=== PATIENT | male | born 1945 | race Caucasian/White ===

== ENCOUNTER 2017-01-09 05:54 | Day surgery (SDC) | payer MEDICARE, OTHER ==
[~2017-01-09 05:54] MED LIST: Bacitracin Oint 1 GM U/D Packet ONE; Bupivacaine 0.5% 50 ML MDV ONE; Dextrose 5%-Lactated Ringers 1,000 ML IV SCH; Lidocaine 1% with EPINEPHrine 1:100,000 50 ML MDV ONE
[2017-01-09] MEDS ORDERED: Bupivacaine 0.5%/EPINEPHrine 1:200,000 50 ML MDV ONE (06:53)
[2017-01-09] MEDS ORDERED: Lidocaine 1% 50 ML MDV ONE (06:54)
[2017-01-09] MEDS ORDERED: Albuterol/Ipratropium 3.0-0.5 MG/3 ML Neb Soln NEB ONE (07:00)
[2017-01-09] MEDS ORDERED: Propofol 200 MG/20 ML SDV ONE ×2 (07:08→09:16)
[2017-01-09] MEDS ORDERED: fentaNYL 100 MCG/2 ML SDV ONE (07:08)
[2017-01-09] MEDS ORDERED: Midazolam 1 MG/ML 2 ML SDV ONE (07:08)
[2017-01-09] MEDS ORDERED: Bacitracin Oint 1 GM U/D Packet ONE (07:20)
[2017-01-09 10:24] VITALS: BP 131/77
--- NOTE | 2017-01-14 12:49 | OR ---
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 OPERATIVE PROCEDURE: 1. Excision of atypical keratotic lesion of left lower back with layered closure (85294, [id number]). 2. Excision of atypical keratotic lesion right lower back with layered closure (19387, 25109). 3. Excision of atypical keratotic lesions of lower mid back with layered closure (42712, 71410). 4. Excision of atypical keratotic lesions of right upper back with layered closure ([id number], 24190). 5. Excision of atypical keratotic lesion of mid upper back with layered closure (26336, 76300). ANESTHESIA: Local plus IV sedation. FORMULATOR: WILL Reed student. INDICATIONS FOR PROCEDURE: This is a 71-year-old with aggressive formation of pigmented keratotic lesions, particularly on his back. He was referred from his primary care provider to evaluate these lesions, and a total of five were felt to be atypical in terms of dark pigmentation and would warrant excision. The plan is to proceed with excision of these. Potential risks including bleeding, infection, some cosmetic deformity, possible initial treatment might be required if melanoma happens to be identified within one of the lesions were all gone over and the patient wishes to proceed. DETAILS OF PROCEDURE: The patient was taken to the operating room and placed in a prone position. IV sedation was administered, after which the back area was then prepped and draped. Beginning in the left lower back, an elliptical incision was made of 2.5 cm, removing a lesion of 1.2 cm. In the right lower back, an elliptical incision of 2.7 cm was made, removing a lesion of 2.1 cm. In the lower mid back, a 4.2 cm incision was made, removing a lesion measuring 2.8 cm. In the right upper back, a lesion measuring 2.1 cm was excised with an incision length of 4.0 cm. Finally, in the upper mid back, a 2.1 cm lesion was removed with incision length of 2.5 cm. In each case, the deeper soft tissues were approximated with a combination of 4-0 and 3-0 Vicryl sutures, and the skin closed with a 5- 0 Prolene stitch. Dressings were applied. The patient was taken to the recovery room in satisfactory condition. Douglas Nina MD /[id number]
== END 2017-01-09 10:32 | disposition home or self-care (01) ==
LOC: JP.SDS 05:54
PROVIDERS: ATTEND Surgery
DX: L57.0 Actinic keratosis (principal); E66.9 Obesity, unspecified; F17.210 Nicotine dependence, cigarettes, uncomplicated
CPT/HCPCS: 11602; 11603; 12032; 88305; J2250; J2704; J3010; J7042; J7620

== ENCOUNTER 2022-12-24 11:44 | Emergency (ER) | payer OTHER ==
[2022-12-24] MEDS ORDERED: Sodium Chloride 0.9% 10 ML Syringe FLUSH PRN (12:36)
[2022-12-24 12:50] LABS: BASOPHILS ABSOLUTE AUTO 0.03 K/uL (0.00-0.10); BASOPHILS PERCENT AUTO 0.4 % (0.1-1.3); EOSINOPHILS ABSOLUTE AUTO 0.11 K/uL (0.00-0.40); EOSINOPHILS PERCENT AUTO 1.3 % (0.0-5.4); HEMATOCRIT 39.1 % (38.4-49.7); HEMOGLOBIN 12.9 g/dL (12.9-16.9); IMMATURE GRAN ABSOLUTE AUTO 0.03 K/uL (0.00-0.23); IMMATURE GRAN PERCENT AUTO 0.4 % (0.0-0.7); LYMPHOCYTES PERCENT AUTO 29.3 % (11.4-47.7); MEAN CORPUSCULAR HEMOGLOBIN 31.5 pg (31.6-35.5); MEAN CORPUSCULAR VOLUME 95.4 fL (81.4-99.0); MONOCYTES ABSOLUTE AUTO 0.97 K/uL (0.20-0.90); MONOCYTES PERCENT AUTO 11.9 % (3.3-12.6); NEUTROPHILS ABSOLUTE AUTO 4.64 K/uL (1.0-7.6); NEUTROPHILS PERCENT AUTO 56.7 % (40.0-78.1); PLATELET COUNT,PLT 327 K/uL (130-375); WHITE BLOOD CELL COUNT,WBC 8.2 K/uL (3.2-11.0)
[2022-12-24 13:17] LABS: A/G RATIO 0.7 (1.2-2.2); ALANINE AMINOTRANSFERASE,ALT 32 U/L (12-78); ALKALINE PHOSPHATASE 106 U/L (46-116); ASPARTATE AMNIOTRANSFERASE,AST 18 U/L (15-37); BILIRUBIN TOTAL 0.3 mg/dL (0.2-1.0); BLOOD UREA NITROGEN,BUN 16 mg/dL (7-18); CALCIUM 8.6 mg/dL (8.5-10.1); CARBON DIOXIDE,CO2 28 mmol/L (21-32); CHLORIDE,CL 104 mmol/L (100-108); CREATININE 0.9 mg/dL (0.8-1.3); EST CRCL DRUG DOSING (CG) 65.28 mL/min; ESTIMATED GFR 89 mL/min (>60); GLUCOSE RANDOM 99 mg/dL (74-106); POTASSIUM,K 4.5 mmol/L (3.6-5.2); PRO B-TYPE NATRIUR PEPT,BNPPRO 1169 pg/mL (5-450); PROTEIN TOTAL,TP 7.3 g/dL (6.4-8.2); SODIUM,NA 137 mmol/L (140-148); TROPONIN I HIGH SENSITIVITY 13.8 pg/mL (<=60.3)
[2022-12-24 13:20] LABS: ANION GAP 9.5 mmol/L (5.0-14.0)
[2022-12-24] MEDS ORDERED: Furosemide 40 MG/4 ML VIAL IVPUSH ONE (13:43)
[2022-12-24 14:10] VITALS: BP 110/85; PULSE 58
== END 2022-12-24 15:45 | disposition home or self-care (01) ==
LOC: JP.ED 11:44
DX: R06.02 Shortness of breath (principal); R06.01 Orthopnea; I48.91 Unspecified atrial fibrillation; Z87.891 Personal history of nicotine dependence; Z79.01 Long term (current) use of anticoagulants
CPT/HCPCS: 36415; 71046; 80053; 83880; 84484; 85025; 93005; 96374; 99285; J1940; J3490

== ENCOUNTER 2024-11-29 10:29 | Emergency (ER) | payer OTHER ==
[2024-11-29 11:46] VITALS: BP 119/56; PULSE 67
== END 2024-11-29 12:12 | disposition home or self-care (01) ==
LOC: JP.ED 10:29
DX: S46.912A Strain of unspecified muscle, fascia and tendon at shoulder and upper arm level, left arm, initial encounter (principal); E66.9 Obesity, unspecified; Z79.899 Other long term (current) drug therapy; W50.0XXA Accidental hit or strike by another person, initial encounter
CPT/HCPCS: 73070-26-LT; 73070-LT; 99283